=== PATIENT | female | born 1980 | race Caucasian/White ===

== ENCOUNTER 2023-09-28 08:38 | Emergency (ER) | payer OTHER, MEDICARE, SELFPAY ==
[2023-09-28 08:38] VITALS: BMI 21.7
[2023-09-28 08:39] VITALS: BP 165/130
--- NOTE | 2023-09-28 09:16 | ED.GENMED ---
History of Present Illness
General
Chief Complaint: Musculo-Skeletal Complaint
Source: patient
Exam Limitations: none
Time Seen by Provider: 09/28/23 09:03
Nursing documentation reviewed up to this point in time: agreed with
Travel History
Have you had any contact with someone who has COVID-19?: No
Do you have any symptoms of coronavirus? Fever > 100 degrees, chills, cough, shortness of breath, sore throat, loss of taste or smell, muscle aches, or headache?: No
History of Present Illness
History of Present Illness:
43 y/o F with h/o chronic pain
lumbar radiculopathy s/p lumbar fusion and diskectomy (2018, 2019 [facility])
s/p L total hip replacement 2020
chronic dislcoation/relocation of R hip because of leg length discrepancy issues
is newly followed by [facility], wants to have assessment about R hip
had a fall yesterday rafiq begum esaid her R hip popped out and she landed on her knees and hands
it relocates spontaneously
since she has had acute exac of her Lower back pain radiating into left leg
she has no new wekaness, incontience, fever. but her pain is severe 10/10 and not responding to her chronic pain meds oxycodone 18 mg ER bid and oxycodoeon 5 mg 4 times a day
pt is tearful and hyperventinating
on menstral cycle
no new symptoms, fever.
Past History
Past History
ED Past Medical History: Other (Arthritis, chronic back pain, cauda equina syndrome, left hip periprosthetic infection)
ED Past Surgical History: Orthopedic
Social History
Tobacco: Non-smoker
Review of Systems
Review of Systems
Allergies reviewed?: Yes
All Other Systems: Not applicable
Phy Exam
Physical Exam
Physical Exam:
GENERAL: Alert , diaphoretic, tearful, hyperventilating
HEAD: NCAT
NECK: no midline tenderness, active ROM intact, no paraspinal muscle tenderness;
CARDIAC: Tachycardic, no edema
LUNGS: Clear breath sounds bilaterally, no acute respiratory distress, no wheezes/rales/rhonchi
ABDOMEN: Soft, without focal tenderness, no r/g, no cvat, normal bowel sounds, nondistended
NEUROLOGICAL: Alert and oriented, no focal neuro deficits, CN intact, 5/5 strength, sensation intact,
SKIN: Warm and dry, no bruising
MUSCULOSKELETAL: No edema, well perfused. Normal inspection of the left hip, left leg and right hip and right leg
I do appreciate a slight leg length discrepancy with the left being longer than the right
Patient has no tenderness to palpation of the hips bilaterally
I am able to rotate both hips without dislocation, she has no decreased range of motion but she does have pain with left hip flexion
Back: No midline tenderness, mild dextroscoliosis, no bruising, no swelling, no tenderness
negative straight leg raise Bilaterally
PSYCH: Normal and appropriate interaction.
Course
Orders/Labs/Results
Orders:
Orders
09/28/23 09:12
Dexamethasone Sod Phosphate [Decadron] 10 mg IV NOW STA
HYDROmorphone [Dilaudid] 1 mg IV NOW STA
Ketorolac [Toradol] 15 mg IV NOW STA
09/28/23 10:17
HYDROmorphone [Dilaudid] 1 mg IV NOW STA
Vital Signs
Initial and Last Documented VS:
Initial Vital Signs
Temp Pulse Resp BP Pulse Ox
98.9 F 119 20 165/130 98
09/28/23 08:39 09/28/23 08:39 09/28/23 08:39 09/28/23 08:39 09/28/23 08:39
Last Documented Vital Signs
Temp Pulse Resp BP Pulse Ox
98.9 F 84 20 118/91 97
09/28/23 08:39 09/28/23 09:25 09/28/23 09:25 09/28/23 10:00 09/28/23 10:30
MDM/Problems Addressed
Differential Diagnosis Includes:
lumbar radiculopathy, hip arthritis, chronic pain acute exacerbation
MDM/Problems Addressed:
43 yo f with left hip pain
acute on chronic exacerbvation
also has known DDD in lumbar spine
says her R hip chronically discloates/subluxes and she did fall yesterday but onto her knees and not onto her left hip
she does not want an xray
she nhas gone to [facility] past when her pain flares up
she tried her oral pain meds but it is not getting better, 04/23
pain is in low back and radiates to left hip
sometimes with tinglign in left foot chronically, no change
no weakness, no incontnience, nof ever, no redness to the hip
on exam she is tachy, sweating, crying and uncomfortable
i can fully range her hip
neg straight leg raise
normal sensation and strenth
no red flag sypmtoms
given iv pain meds x 2 and much improved vitals
ambulating well with her chronic cane
d/c home.
*Critical Care Note
Total Time (30-74mins, 75-104mins- exclusive of procedures): Not Applicable
ED Attending Note
-
Portions of this chart may have been created with voice recognition software.� Occasional wrong word or��sound alike� substitutions may have occurred due to the inherent limitations of voice recognition software.
Discharge Plan
Departure
Patient Disposition: Home (Routine Discharge)
Date of Disposition: 09/28/23
Time of Disposition: 11:09
Patient with high blood pressure during this ER visit?: No
Condition: Fair
Covid-19: Not Applicable
Discharge Problem:
Acute exacerbation of chronic low back pain
Instructions: Chronic Pain (DC)
Prescriptions:
New
prednisone 20 mg tablet
40 mg PO DAILY 5 Days Qty: 10 0RF
No Action
oxycodone-acetaminophen [Percocet] 1 EACH tablet
1 tab PO TIDPRN PRN (Reason: MODERATE PAIN)
Patient Comments:
05/20/21- PT LAST PICKED UP @05/09/21 #90
aspirin 81 MG tablet,chewable
81 mg PO DAILY
lorazepam 1 MG tablet
1 mg PO Q4HPRN PRN (Reason: anxiety)
Patient Comments:
05/20/21 PT LAST PICKED UP @ 05/03/21 #30
gabapentin [Gralise] 600 MG tablet extended release 24 hr
1,800 mg PO HS
oxycodone myristate [Xtampza ER] 18 MG cap,sprinkl,ER12hr(DONT CRUSH)
18 mg PO Q12H
Patient Comments:
05/20/21- PT LAST PICKED UP @05/17/21 #30
tizanidine 2 MG tablet
2 mg PO TID
duloxetine 60 MG capsule,delayed release(DR/EC)
120 mg PO DAILY
vancomycin in 0.9 % sodium chl 750 MG/150 ML piggyback
750 mg IV Q8H 0RF
prednisone 10 MG tablets,dose pack
10 mg PO Daily Qty: 1 0RF
Rx Instructions:
50mg x 2 days, 40mg x 2 days, 30mg x 2 days, 20mg x 2 days, 10mg x 2 days
prednisone 20 mg tablet
40 mg PO DAILY Qty: 10 0RF
Referrals:
Steph Erickson MD [Family Provider] - Follow up in 2-3 days
Activity Restrictions/Additional Instructions:
YOU CAN TAKE THE PREDNISONE ONCE A DAY STARTING TOMORROW TO HELP WITH YOUR PAIN, 40 MG FOR 5 DAYS
CONTINUE YOUR PAIN MEDICATIONS
FOLLOW UP WITH YOUR ORTHO/SPINE SPECIALISTS
RETURN FOR: FEVER, SEVERE PAIN, INIABLITY TO MOVE YOUR HIPS/LEGS, INCONTIENCE, NUMBNESS, WEAKNESS OR ANY CONCERNS.
Interventions
Interventions:
*Risk Screen - Suicide Last Done: 09/28/23 09:03
*General Assessment Last Done: 09/28/23 09:03
*Neglect/Abuse Screening Last Done: 09/28/23 09:03
ED- Fall Risk Assessment Last Done: 09/28/23 09:03
*ED COVID-19 Vaccine History Last Done: 09/28/23 08:42
*Nursing Disposition Last Done: 09/28/23 12:03
ED-Musculoskeletal Assessment Last Done: 09/28/23 09:03
Discharge Date and Time
Discharge Date/Time: 09/28/23 12:04
[2023-09-28 09:17] VITALS: BP 157/107
[2023-09-28] MEDS: DECADRON 10 MG IV (09:20)
[2023-09-28] MEDS: DILAUDID 1 MG IV ×2 (09:20→10:29)
[2023-09-28] MEDS: TORADOL 15 MG IV (09:21)
[2023-09-28 10:00] VITALS: BP 118/91
== END 2023-09-28 12:04 | disposition home or self-care (01) ==
LOC: EMR 08:38
PROVIDERS: EMERGENCY PHYSICIAN Emergency Medicine; FAMILY PHYSICIAN Family Medicine
DX: M54.50 Low back pain, unspecified (principal); M25.552 Pain in left hip; M51.36 Other intervertebral disc degeneration, lumbar region; G89.29 Other chronic pain; W19.XXXA Unspecified fall, initial encounter
CPT/HCPCS: 99284; 96374; 96375 ×2; 96376

== ENCOUNTER 2024-03-22 12:25 | Emergency (ER) | payer OTHER, MEDICARE, SELFPAY ==
[2024-03-22 12:31] VITALS: BP 125/85
[2024-03-22 13:52] VITALS: BP 131/77
[2024-03-22 14:00] VITALS: BP 111/75
--- NOTE | 2024-03-22 14:05 | ED.GENMED ---
History of Present Illness
General
Chief Complaint: Musculo-Skeletal Complaint
Time Seen by Provider: 03/22/24 13:06
History of Present Illness
History of Present Illness:
43-year-old female history of left hip replacement in 2020 with subsequent periprosthetic infection that underwent revision, lumbar fusion, lumbar discectomy, cauda equina syndrome presenting with low back pain radiating down the back of her left
leg starting on 03/18. Patient reports decreased sensation to her left calf and weakness in her left leg. Patient states that she has episodes she was unable to get to the bathroom in time due to pain and had an episode of incontinence, but no
sudden incontinence. Patient denies any recent falls or trauma. Patient states that she had a right hip injection on 03/17 and symptoms started the next day. Patient states that she had subjective fever earlier this week that is since resolved.
Patient states that she has been taking prednisone 60 mg for the past few days with no relief. Patient reports taking gabapentin and Percocet with no relief. Pt states pain is better with left leg fully extended and internal rotation left hip. Pt
states spine doctor is at [facility], sees pain management.
Past History
Past History
ED Past Medical History: Other (Arthritis, chronic back pain, cauda equina syndrome, left hip periprosthetic infection)
ED Past Surgical History: Orthopedic
Social History
Tobacco: Non-smoker
Phy Exam
Physical Exam
Physical Exam:
General: Alert, acute distress secondary to pain
Head: NCAT
Eyes: clear conjunctiva
Neck: supple
Cardiac: regular rate and rhythm, no murmur
Lungs: clear to auscultation bilaterally. No wheezes, rales, or rhonchi. Speaking full unlabored sentences. No respiratory distress.
Abdomen: soft, nondistended nontender. No rebound or guarding.
: good rectal tone. Perirectal sensation intact
MSK: no lower extremity edema bilaterally. No deformity. Midline lower lumbar tenderness to palpation. No overlying erythema or increased warmth. Full passive range of motion of left hip/knee. Tenderness to palpation to left hip. No overlying
erythema or increased warmth to left hip.
Skin: warm, dry
Neuro: Alert and oriented x3. Decreased sensation to left posterior thigh/left calf. no saddle paraesthesias. 4/5 left hip/knee flexion and extension
Course
Orders/Labs/Results
Orders:
Orders
03/22/24 13:45
HYDROmorphone [Dilaudid] 1 mg IV NOW STA
03/22/24 14:14
Type+Screen Urgent
CBC/With Diff [Complete Blood Count/With Diff] Urgent
CMP [Comprehensive Metabolic Panel] Urgent
PT/INR [Prothrombin Time] Urgent
03/22/24 14:44
ABO2 Routine
BBK Wristband Number:
Associate notified that ABO2 has been ordered: [id number]
Date: 03/22/24
Time: 14:40
Medical Laboratory Technician ID: [id number]
Abnormal Lab Results
03/22/24
14:14
WBC 16.5 H 10^3/uL
(4.8-10.8)
MPV 10.8 H fL
(7.4-10.4)
Abs Immat Gran (auto) 0.1 H 10^3/uL
(0-0.05)
Absolute Neuts (auto) 13.7 H 10^3/uL
(1.4-6.5)
Absolute Monos (auto) 1.1 H 10^3/uL
(0.1-0.6)
Neutrophils % 83.1 H %
(42.2-75.2)
Lymphocytes % 9.5 L %
(20.5-51.1)
BUN 23 H mg/dl
(7-17)
Glucose 103 H mg/dl
(70-99)
03/22/24 14:14
03/22/24 14:14
Vital Signs
Initial and Last Documented VS:
Initial Vital Signs
Temp Pulse Resp BP Pulse Ox
98.8 F 95 18 125/85 97
03/22/24 12:31 03/22/24 12:31 03/22/24 12:31 03/22/24 12:31 03/22/24 12:31
Last Documented Vital Signs
Temp Pulse Resp BP Pulse Ox
98.8 F 62 20 116/84 96
03/22/24 12:31 03/22/24 15:30 03/22/24 15:15 03/22/24 15:00 03/22/24 14:45
MDM/Problems Addressed
Differential Diagnosis Includes:
Lumbar radiculopathy, periprosthetic infection
MDM/Problems Addressed:
43-year-old female presenting with low back pain radiating down the left leg to her left calf starting on 03/18. Patient states that she was put on prednisone 60 mg daily which she has been taking for the past few days with minimal relief. Patient
states that she has been taking Percocet with minimal relief. Patient denies any recent falls or trauma. On initial evaluation, patient tearful in acute distress secondary to pain. Full passive range of motion left hip. Difficulty assessing left
leg weakness secondary to pain. Normal rectal tone and sensation. On chart review, patient has history of cauda equina. Gave Dilaudid 1 mg IV. Obtain labs that showed white count 16.5 most likely reactive from being on prednisone. Otherwise
unremarkable. On reevaluation patient reports significant improvement in pain. 5 out of 5 bilateral hip/knee/ankle flexion and extension. 2+ patellar reflexes bilaterally. Decreased sensation to left calf compared to right which patient states
is new since onset of pain. Due to decreased sensation and significant pain, offered admission for MRI. Patient declined states that she would like to be discharged and follow-up with pain management and spine at [facility], get MRI outpatient. Patient
states that her pain is under control right now. Lower suspicion for left hip periprosthetic infection given full passive range of motion without pain to left hip, afebrile, nontachycardic, patient reports pain radiating down her left leg more
consistent with lumbar radiculopathy. Again discussed risks of not obtaining MRI including worsening pain, nerve impingement that results in paralysis. Patient expressed verbal understanding and again requested to be discharged. Will discharge with
spine and pain management follow up.
*Critical Care Note
Total Time (30-74mins, 75-104mins- exclusive of procedures): Not Applicable
ED Attending Note
-
Portions of this chart may have been created with voice recognition software.� Occasional wrong word or��sound alike� substitutions may have occurred due to the inherent limitations of voice recognition software.
Discharge Plan
Departure
Patient Disposition: Home (Routine Discharge)
Date of Disposition: 03/22/24
Time of Disposition: 15:35
Patient with high blood pressure during this ER visit?: No
Discharge Problem:
Left lumbar radiculopathy
Prescriptions:
No Action
oxycodone-acetaminophen [Percocet] 1 EACH tablet
1 tab PO TIDPRN PRN (Reason: MODERATE PAIN)
Patient Comments:
05/20/21- PT LAST PICKED UP @05/09/21 #90
aspirin 81 MG tablet,chewable
81 mg PO DAILY
lorazepam 1 MG tablet
1 mg PO Q4HPRN PRN (Reason: anxiety)
Patient Comments:
05/20/21 PT LAST PICKED UP @ 05/03/21 #30
gabapentin [Gralise] 600 MG tablet extended release 24 hr
1,800 mg PO HS
oxycodone myristate [Xtampza ER] 18 MG cap,sprinkl,ER12hr(DONT CRUSH)
18 mg PO Q12H
Patient Comments:
05/20/21- PT LAST PICKED UP @05/17/21 #30
tizanidine 2 MG tablet
2 mg PO TID
duloxetine 60 MG capsule,delayed release(DR/EC)
120 mg PO DAILY
vancomycin in 0.9 % sodium chl 750 MG/150 ML piggyback
750 mg IV Q8H 0RF
prednisone 10 MG tablets,dose pack
10 mg PO Daily Qty: 1 0RF
Rx Instructions:
50mg x 2 days, 40mg x 2 days, 30mg x 2 days, 20mg x 2 days, 10mg x 2 days
prednisone 20 mg tablet
40 mg PO DAILY Qty: 10 0RF
prednisone 20 mg tablet
40 mg PO DAILY 5 Days Qty: 10 0RF
Referrals:
Steph Erickson MD [Family Provider] -
Activity Restrictions/Additional Instructions:
Continue taking all medications as prescribed
Follow-up with pain management and spine outpatient
Return to the emergency department for weakness, fever or new/worsening symptoms
Interventions
Interventions:
*Risk Screen - Suicide Last Done: 03/22/24 14:29
*General Assessment Last Done: 03/22/24 14:29
*Neglect/Abuse Screening Last Done: 03/22/24 14:29
*ED COVID-19 Vaccine History Last Done: 03/22/24 14:29
*Nursing Disposition Last Done: 03/22/24 16:41
ED-Musculoskeletal Assessment Last Done: 03/22/24 14:29
Discharge Date and Time
Discharge Date/Time: 03/22/24 16:42
Print Language: CHINESE
[2024-03-22 14:14] VITALS: BMI 23.4
[2024-03-22] MEDS: DILAUDID 1 MG IV (14:15)
[2024-03-22 14:42] LABS: % Basophils 0.2 % (0-2); % Immature Granulocytes 0.5 % (0-0.5); % Lymphocytes 9.5 % (20.5-51.1); % Monocytes 6.7 % (1.7-9.3); % Neutrophils 83.1 % (42.2-75.2); Absolute Immature Granulocytes 0.1 10^3/uL (0-0.05); Absolute Lymphocytes 1.6 10^3/uL (1.2-3.4); Absolute Monocytes 1.1 10^3/uL (0.1-0.6); Absolute Neutrophils 13.7 10^3/uL (1.4-6.5); Hematocrit 39.9 % (37.0-47.0); Hemoglobin 13.7 g/dL (12.0-16.0); Mean Corp Hgb Conc. 34.3 g/dL (33.0-37.0); Mean Corpuscular Hgb 30.6 pg (27.0-31.0); Mean Corpuscular Volume 89.1 fL (81.0-99.0); Mean Platelet Volume 10.8 fL (7.4-10.4); Nucleated Red Blood Cells % 0 %; Platelet Count 269 10^3/uL (130-400); Red Blood Cell Count 4.48 10^6/uL (4.20-5.40); Red Cell Dist. Width 13.2 % (11.5-14.5); White Blood Cell Count 16.5 10^3/uL (4.8-10.8)
[2024-03-22 14:53] LABS: INR 0.94; PT 12.4 Sec (11.4-14.6)
[2024-03-22 14:58] LABS: ALT (SGPT) 14 U/L (0-35); AST (SGOT) 16 U/L (14-36); Albumin 3.9 g/dl (3.5-5.0); Alkaline Phosphatase 54 U/L (38-126); Blood Urea Nitrogen 23 mg/dl (7-17); Calcium 9.1 mg/dl (8.4-10.2); Carbon Dioxide 29 mmol/L (22-30); Chloride 102 mmol/L (98-107); Estimated Creatinine Clearance 98 ml/min; Glucose 103 mg/dl (70-99); Potassium 4.6 mmol/L (3.5-5.1); Sodium 139 mmol/L (135-145); Total Bilirubin 0.3 mg/dl (0.2-1.3); Total Protein 6.3 g/dl (6.3-8.2); eGFR > 60.00
[2024-03-22 15:00] VITALS: BP 116/84
== END 2024-03-22 16:42 | disposition home or self-care (01) ==
LOC: EMR 12:25
PROVIDERS: EMERGENCY PHYSICIAN Emergency Medicine; FAMILY PHYSICIAN Family Medicine
DX: M54.16 Radiculopathy, lumbar region (principal)
CPT/HCPCS: 99284; 96374; 80053; 85025; 85610; 86850; 86900; 86901

== ENCOUNTER 2024-03-24 14:37 | Inpatient (IN) | payer OTHER, MEDICARE, SELFPAY ==
[2024-03-24 12:51] VITALS: BP 138/95
--- NOTE | 2024-03-24 13:44 | ED.GENMED ---
History of Present Illness
General
Chief Complaint: Back Pain
Source: patient
Exam Limitations: none
Time Seen by Provider: 03/24/24 13:31
Nursing documentation reviewed up to this point in time: agreed with
History of Present Illness
History of Present Illness:
Patient to ED with complaint of severe low back pain with radiation down left leg. She was seen in ED on saturday and offered admission for MRI, pain control but patient states wanted to go home and return to pain management. Pain has become worse
and now states that she can not bear weight on her LLE due to severe pain. Ambulating with a walker now. States she was seen by Dr. Rasmussen this AM and sent back to ED. Discussed her status with him via tiger text and he confirms worsening
symptoms despite current pain meds and oral steroids. Agrees with need for MRI at this point. She denies fever/chills, recent illness. Denies bowel or bladder symptoms. No numbness/saddle paresthesia. Brought self to ED for eval.
Past History
Past History
ED Past Medical History: Other (Arthritis, chronic back pain, cauda equina syndrome, left hip periprosthetic infection)
ED Past Surgical History: Orthopedic
Social History
Tobacco: Non-smoker
Review of Systems
Review of Systems
Allergies reviewed?: Yes
All Other Systems: ROS reviewed and negative except as documented in HPI and ROS
Constitutional: Reports no symptoms
EENT: Reports no symptoms
Respiratory: Reports no symptoms
Cardiac: Reports no symptoms
ABD/GI: Reports no symptoms
: Reports no symptoms
Musculoskeletal: Reports back pain (severe back pain with radiation down LLE)
Skin: Reports no symptoms
Neurological: Reports weakness (pain and weakness LLE)
Psychiatric: Reports no symptoms
Phy Exam
General Physical Exam
General Presentation: moderate distress
General age: appears stated age
General Skin: warm and dry
General Habitus: normal
General Mental: tearful
Cardiovascular Exam
Cardiovascular Exam: regular rate/rhythm and no edema
Musculoskeletal Exam
Musculoskeletal Exam: full ROM (+straight leg raise), neuro vasc intact and other (unable to test reflexes LLE due to pain level)
Skin Exam
Skin Exam: normal color, warm/dry and no rash
Psychiatric Exam
Psychiatric Exam: normal mood/affect
Course
Orders/Labs/Results
Orders:
Orders
03/24/24 13:43
0.9% Sodium Chloride 1000 ml [Nss] 1,000 ml IV BOLUS
HYDROmorphone [Dilaudid] 1 mg IV NOW STA
Ondansetron Injectable [Zofran] 4 mg IV NOW STA
03/24/24 13:48
Complete Blood Count/With Diff Urgent
Comprehensive Metabolic Panel Urgent
Urinalysis Reflex To Culture Urgent
Date Specimen was Collected: 03/24/24
Time Specimen was Collected: 13:46
Urine Microscopic Reflex Cult Urgent
Urine Culture Urgent
WALT Source: U
Specimen Description:
Date Specimen was Collected: 03/24/24
Time Specimen was Collected: 13:46
03/24/24 14:11
Dexamethasone Sod Phosphate [Decadron] 10 mg IV NOW STA
03/24/24 14:30
Admit/Transfer Patient As Directed
Co-Sign Provider:
Level of Care: Inpatient admission
Assign to:: Medical/Surgical
Physician / Group: cori
Diagnosis: acute lower back pain
Reason for Hospitalization: acute lower back pain
Expected length of stay greater than two midnights?: Yes
ELOS- Estimated Length of Stay in days: 2
I certify the patient meets the requirements for IP care: Yes
03/24/24 14:31
Code Status As Directed
Resuscitation Status: Full Code
03/24/24 Dinner
Regular
At Your Request: Full Participation
03/24/24 15:55
Acetaminophen [Tylenol] 650 mg PO Q4HPRN PRN
Ibuprofen [Motrin] 400 mg PO Q6HPRN PRN
03/24/24 15:55
MR Left Hip W/o Routine
Comment:
Reason For Exam: pain
Recent pill cam endoscopy?: No
MR Lumbar W/o & With Contrast Routine
Comment:
Reason For Exam: acute lower back pain
Recent pill cam endoscopy?: No
Activity As Directed
Activity Level: As Tolerated
Vital Signs As Directed
Frequency: Per unit guidelines
DX Deep Vein Thrombosis Video Routine
03/24/24 16:30
HYDROmorphone [Dilaudid] 1 mg IV Q4HPRN PRN
03/24/24 20:00
Heparin 5,000 units SC Q12
03/25/24 06:00
Complete Blood Count/With Diff IN AM
Comprehensive Metabolic Panel IN AM
Abnormal Lab Results
03/24/24
13:48
WBC 13.4 H 10^3/uL
(4.8-10.8)
MCH 31.8 H pg
(27.0-31.0)
Abs Immat Gran (auto) 0.1 H 10^3/uL
(0-0.05)
Absolute Neuts (auto) 11.1 H 10^3/uL
(1.4-6.5)
Neutrophils % 83.0 H %
(42.2-75.2)
Lymphocytes % 12.5 L %
(20.5-51.1)
Chloride 97 L mmol/L
(98-107)
Carbon Dioxide 34 H mmol/L
(22-30)
BUN 21 H mg/dl
(7-17)
Glucose 126 H mg/dl
(70-99)
Leukocyte Esterase Rfl 1+ A
(Negative)
Urine Bacteria (Reflex) Moderate A
(Negative)
03/24/24 13:48
03/24/24 13:48
Vital Signs
Initial and Last Documented VS:
Initial Vital Signs
Temp Pulse Resp BP Pulse Ox
98.7 F 75 16 138/95 95
03/24/24 12:51 03/24/24 12:51 03/24/24 12:51 03/24/24 12:51 03/24/24 12:51
Last Documented Vital Signs
Temp Pulse Resp BP Pulse Ox
98.3 F 72 18 138/82 96
03/24/24 15:54 03/24/24 15:54 03/24/24 15:54 03/24/24 15:54 03/24/24 15:54
*Critical Care Note
Total Time (30-74mins, 75-104mins- exclusive of procedures): Not Applicable
Update Note
Update Note:
Patient to ED wtih complaint of severe low back pain with severe pain to LLE. using walker at home which is not her usual. Seen in ED and offered admission but she declined. Returns today with wrosening pain, recommendation to return by
[facility]. Will admit to hospitalist. MRI necessary.
ED Attending Note
-
Portions of this chart may have been created with voice recognition software.� Occasional wrong word or��sound alike� substitutions may have occurred due to the inherent limitations of voice recognition software.
Discharge Plan
Departure
Patient Disposition: Admit
Date of Disposition: 03/24/24
Time of Disposition: 14:09
Presentation/result/management discussed w/ accepting MD/DO: Hospitalist
Condition: Fair
Covid-19: Not Applicable
Discharge Problem:
Severe low back pain, Lumbar back pain with radiculopathy affecting left lower extremity
Interventions
Interventions:
*Risk Screen - Suicide Last Done: 03/24/24 13:13
*General Assessment Last Done: 03/24/24 13:13
*Neglect/Abuse Screening Last Done: 03/24/24 13:13
*ED COVID-19 Vaccine History Last Done: 03/24/24 13:13
*Nursing Disposition Last Done: 03/24/24 15:54
ED-Musculoskeletal Assessment Last Done: 03/24/24 13:15
Discharge Date and Time
Discharge Date/Time: 03/24/24 15:54
[2024-03-24] MEDS: DILAUDID 1 MG IV ×3 (13:48→18:37)
[2024-03-24] MEDS: ZOFRAN 4 MG IV (13:49)
[2024-03-24] MEDS: NSS 1000 IV (13:49)
[2024-03-24 13:51] VITALS: BP 142/102
[2024-03-24 14:00] VITALS: BP 114/67
[2024-03-24 14:07] LABS: Urine Albumin Trace (Neg - Trace); Urine Bilirubin Negative (Negative); Urine Character Clear (Clear); Urine Color Yellow; Urine Glucose Negative (Negative); Urine Ketone Negative (Negative); Urine Leukocyte 1+ (Negative); Urine Nitrite Negative (Negative); Urine Occult Blood Negative (Negative); Urine Urobilinogen Negative (Neg - 1+)
[2024-03-24 14:11] LABS: % Basophils 0.5 % (0-2); % Eosinophils 0.7 % (0-6); % Immature Granulocytes 0.4 % (0-0.5); % Lymphocytes 12.5 % (20.5-51.1); % Monocytes 2.9 % (1.7-9.3); Absolute Basophils 0.1 10^3/uL (0-0.2); Absolute Eosinophils 0.1 10^3/uL (0-0.7); Absolute Immature Granulocytes 0.1 10^3/uL (0-0.05); Absolute Lymphocytes 1.7 10^3/uL (1.2-3.4); Absolute Monocytes 0.4 10^3/uL (0.1-0.6); Absolute Neutrophils 11.1 10^3/uL (1.4-6.5); Hematocrit 44.6 % (37.0-47.0); Hemoglobin 15.2 g/dL (12.0-16.0); Mean Corp Hgb Conc. 34.1 g/dL (33.0-37.0); Mean Corpuscular Hgb 31.8 pg (27.0-31.0); Mean Corpuscular Volume 93.3 fL (81.0-99.0); Mean Platelet Volume 10.3 fL (7.4-10.4); Nucleated Red Blood Cells % 0 %; Platelet Count 289 10^3/uL (130-400); Red Blood Cell Count 4.78 10^6/uL (4.20-5.40); Red Cell Dist. Width 13.3 % (11.5-14.5); White Blood Cell Count 13.4 10^3/uL (4.8-10.8)
[2024-03-24] MEDS: DECADRON 10 MG IV (14:17)
[2024-03-24 14:25] LABS: ALT (SGPT) 15 U/L (0-35); AST (SGOT) 18 U/L (14-36); Albumin 4.3 g/dl (3.5-5.0); Alkaline Phosphatase 59 U/L (38-126); Blood Urea Nitrogen 21 mg/dl (7-17); Calcium 9.5 mg/dl (8.4-10.2); Carbon Dioxide 34 mmol/L (22-30); Chloride 97 mmol/L (98-107); Glucose 126 mg/dl (70-99); Potassium 4.4 mmol/L (3.5-5.1); Sodium 139 mmol/L (135-145); Total Bilirubin 0.3 mg/dl (0.2-1.3); Total Protein 6.8 g/dl (6.3-8.2); eGFR > 60.00
--- NOTE | 2024-03-24 14:36 | HPS.HSE ---
Addendum entered and electronically signed by Neetu Mccurdy MD 03/24/24 15:15:
Continue xtampza.
Original Note:
Family Physician
-
Family Physician: Steph Erickson
Chief Complaint
-
back pain
History of Present Illness
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
with radiation down the left leg.
She came to the emergency room 2 days ago severe lower back pain starting on 03/18. She had right hip injection on 03/17 and symptoms started the next day. She reported decreased sensation of her left calf and weakness in her left leg. She was unable
to get to the bathroom in time due to pain and had an episode of incontinence. She denies any prior history of incontinence. She denies recent falls or trauma. She has had subjective fever with chills earlier this week that is since resolved.
She has been taking prednisone 60 mg for the past 2 days without relief. He is also taking gabapentin and Percocet without relief. MRI was recommended but patient wanted to be discharged at that time.
She was unable to bear weight today so she came back to the emergency room.
She is due for repeat cervical and lumbar spinal fusion.
She uses medical marijuana.
Her spine doctor is at [facility] and she sees pain management.
Medical History
Past Medical History
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
Past Surgical History: Reports Other (spinal fusion, discectomy )
Social History
Tobacco: Non-smoker
Alcohol: None
Drug: Marijuana
Family History
Family History: Not pertinent
Allergies / Home Medications
Allergies reflects when Allergies were last updated in [facility].
Home Medications with original date entered in [facility]
Allergy/Medication List:
Allergies
Allergy/AdvReac Type Severity Reaction Status Date / Time
No Known Allergies Allergy Verified 09/28/23 08:45
Home Medications
aspirin 81 mg chewable tablet 81 mg PO DAILY 05/20/21
duloxetine 60 mg capsule,delayed release 120 mg PO DAILY 05/20/21
lorazepam 1 mg tablet 1 mg PO Q4HPRN PRN anxiety 05/20/21
oxycodone myristate 18 mg capsule sprinkle extended release 12hr(DON'T CRUSH) (Xtampza ER) 18 mg PO Q12H 05/20/21
oxycodone-acetaminophen 10 mg-325 mg tablet (Percocet) 1 tab PO TIDPRN PRN MODERATE PAIN 05/20/21
tizanidine 2 mg tablet 2 mg PO TID 05/20/21
prednisone 10 mg tablets in a dose pack 10 mg PO Daily ##1 11/30/21
Review of Systems
-
History Source: Patient
A 12 point ROS was completed and negative except as noted: Yes
Constitutional: Reports No Symptoms
EENT: Reports No Symptoms
Respiratory: Reports No Symptoms
Cardiac: Reports No Symptoms
Abdomen/GI: Reports No Symptoms
: Reports No Symptoms
Musculoskeletal: Reports See HPI
Skin: Reports No Symptoms
Neurological: Reports No Symptoms
Endocrine: Reports No Symptoms
Hematologic/Lymphatic: Reports No Symptoms
Psych: Reports No Symptoms
Physical Exam
Vital Signs
Vital Signs
Temp Pulse Resp BP Pulse Ox
98.7 F 69 16 114/67 94
03/24/24 12:51 03/24/24 14:15 03/24/24 12:51 03/24/24 14:00 03/24/24 14:15
Physical Exam
General: Well Developed, Well Nourished and No Apparent Distress
HEENT: NormoCephalic, Moist mucous membranes and Atraumatic
Respiratory: Clear
Cardiac: S1/S2 and Regular Rhythm; No Murmur or Rub
GI: Soft, Non Tender, Non Distended and Normal Bowel Sounds; No Organomegaly
Rectal: Deferred by Provider
Musculoskeletal: No Clubbing, No Cyanosis, No Edema and Other (decreased strength left lower extremity, tenderness lower back )
Skin: No Rash
Neuro: Nonfocal/grossly intact
Laboratory Results
-
03/24/24 13:48
03/24/24 13:48
Laboratory Results
Total Bilirubin 0.3 mg/dl (0.2-1.3) 03/24/24 13:48
AST 18 U/L (14-36) 03/24/24 13:48
ALT 15 U/L (0-35) 03/24/24 13:48
Alkaline Phosphatase 59 U/L (38-126) 03/24/24 13:48
Data Reviewed
-
Lab Data: Labs Reviewed by me
Old Records: Reviewed
Impression/Plan
-
IMPRESSION:
PLAN:
# Acute on chronic lower back pain with left-sided radiculopathy
# History of cauda equina syndrome secondary to herniated disks status post lumbar fusion/cystectomy
-Incontinence does not seem related to spinal cord compression but rather ambulatory dysfunction
-Patient did have incontinence, fever earlier this week
-Check MRI lumbar spine/left hip
-Dilaudid for severe pain
-Lidocaine patch
-Tylenol, ibuprofen
-Continue gabapentin
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
Medical marijuana use
Full code
DVT prophylaxis�heparin
Regular diet
[2024-03-24 15:49] LABS: Urine Squamous Cell >30 /LPF (Few)
[2024-03-24 15:50] LABS: Urine Bacteria Moderate (Negative); Urine Red Blood Cell 0-2 /HPF (0-2); Urine White Cell 0-2 /HPF (0-5)
[2024-03-24 15:54] VITALS: BP 138/82
[2024-03-24 15:55] VITALS: BMI 24.7
[2024-03-24] MEDS: NEURONTIN 600 MG PO ×2 (16:26→20:54)
[2024-03-24] MEDS: HEPARIN 5000 UNITS SC (20:50)
[2024-03-24] MEDS: ATIVAN 1 MG PO (20:50)
[2024-03-24] MEDS: ZOLOFT 50 MG PO (20:54)
[2024-03-24 23:03] VITALS: BP 140/89
[2024-03-25] MEDS: DILAUDID 1 MG IV ×4 (00:26→12:16)
[2024-03-25] MEDS: MOTRIN 400 MG PO (04:22)
[2024-03-25] MEDS: NEURONTIN 600 MG PO ×3 (07:28→21:22)
[2024-03-25] MEDS: LIDOCAINE 4% PATCH 1 PATCH TOPICAL (07:28)
[2024-03-25] MEDS: ATIVAN 1 MG PO ×2 (07:29→20:12)
[2024-03-25] MEDS: HEPARIN 5000 UNITS SC ×2 (07:29→20:12)
[2024-03-25] MEDS: TYLENOL 650 MG PO (07:29)
--- NOTE | 2024-03-25 07:38 | PTCARENOTE ---
Received pt back from MRI tearful, c/o 04/23 back pain radiating down both legs. See SEP. Ice and warm compresses provided.
[2024-03-25 08:00] VITALS: BP 140/86
[2024-03-25 08:34] LABS: Hemoglobin 15.6 g/dL (12.0-16.0); Mean Corp Hgb Conc. 34.7 g/dL (33.0-37.0); Mean Corpuscular Hgb 31.1 pg (27.0-31.0); Mean Corpuscular Volume 89.6 fL (81.0-99.0); Mean Platelet Volume 10.3 fL (7.4-10.4); Platelet Count 314 10^3/uL (130-400); Red Blood Cell Count 5.02 10^6/uL (4.20-5.40); Red Cell Dist. Width 12.9 % (11.5-14.5); White Blood Cell Count 26.6 10^3/uL (4.8-10.8)
[2024-03-25 08:52] LABS: ALT (SGPT) 14 U/L (0-35); AST (SGOT) 19 U/L (14-36); Albumin 4.2 g/dl (3.5-5.0); Alkaline Phosphatase 64 U/L (38-126); Blood Urea Nitrogen 19 mg/dl (7-17); Calcium 9.7 mg/dl (8.4-10.2); Carbon Dioxide 27 mmol/L (22-30); Chloride 100 mmol/L (98-107); Estimated Creatinine Clearance 98 ml/min; Glucose 98 mg/dl (70-99); Potassium 4.4 mmol/L (3.5-5.1); Sodium 136 mmol/L (135-145); Total Bilirubin 0.6 mg/dl (0.2-1.3); Total Protein 6.9 g/dl (6.3-8.2); eGFR > 60.00
[2024-03-25 09:11] LABS: % Basophils 0.2 % (0-2); % Immature Granulocytes 0.8 % (0-0.5); % Lymphocytes 10.3 % (20.5-51.1); % Monocytes 5.3 % (1.7-9.3); % Neutrophils 83.4 % (42.2-75.2); Absolute Basophils 0.1 10^3/uL (0-0.2); Absolute Immature Granulocytes 0.2 10^3/uL (0-0.05); Absolute Lymphocytes 2.7 10^3/uL (1.2-3.4); Absolute Monocytes 1.4 10^3/uL (0.1-0.6); Absolute Neutrophils 22.2 10^3/uL (1.4-6.5); Nucleated Red Blood Cells % 0 %
[2024-03-25] MEDS: DECADRON 6 MG IV ×2 (12:08→23:15)
[2024-03-25] MEDS: TYLENOL 325 MG PO ×3 (12:09→21:22)
[2024-03-25] MEDS: ROXICODONE 10 MG PO ×2 (12:09→17:23)
--- NOTE | 2024-03-25 12:23 | W.PN.HOSP.TC ---
Today's Communication/Plan
-
standing long acting pain meds-dose increased
IV narcs
pt/ot
await pain management recs
Assessment / Plan
Assessment / Plan
# Acute on chronic lower back pain with left-sided radiculopathy
# History of cauda equina syndrome secondary to herniated disks status post lumbar fusion/cystectomy
-MR lumbar At L3-4, there is a new central through left subarticular inferior disc extrusion, occupying the left lateral recess inferior to the disc space level, and likely resulting in compression of the left L4 nerve root origin. At L4-5, there is
a central through left subarticular disc protrusion, also present on previous examination, probably slightly increased from previous exam. There is posterior decompression from left posterolateral laminectomy at this level. At L4-5, there is also
moderate left foraminal narrowing.
-MR hip Left hip prosthesis is present with resultant susceptibility artifact. There is no significant MR abnormality of the left hip adjacent to the prosthesis.There is moderate degenerative change of the superolateral right hip joint.
-Standing oxycontin (non formulary Xtampza) 15mg Q12H. Continue percocet QID. Dilaudid for severe pain
-Lidocaine patch
-Tylenol, ibuprofen
-Continue gabapentin 600mg TID
-Trial of IV steroids as it seemed to help in the past
-Reached out to patient primary pain management Dr. Longoria-awaiting to hear back.
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
Medical marijuana use
Full code
DVT prophylaxis�heparin
Regular diet
Anticipated Discharge: > 48 hours
Subjective/Interval History
-
Date of Service: March 25, 2024
states of severe back pain-LLE
shooting constant pain
worsened recently
hx of back pain and back surgeries
Objective Data
-
Labs:
Laboratory Results
03/25/24
08:11
WBC 26.6 H
Hgb 15.6
Hct 45.0
Plt Count 314
Sodium 136
Potassium 4.4
Chloride 100
Carbon Dioxide 27
BUN 19 H
Creatinine 0.5 L
Glucose 98
Calcium 9.7
Total Bilirubin 0.6
AST 19
ALT 14
Alkaline Phosphatase 64
Vital Signs:
Vital Signs
Temp Pulse Resp BP Pulse Ox
98.3 F 70 18 140/86 100
03/25/24 08:00 03/25/24 08:00 03/25/24 08:00 03/25/24 08:00 03/25/24 08:00
I&O
03/24/24 03/25/24 03/26/24
06:59 06:59 06:59
Intake Total 960 / 960
Balance 960 / 960
Physical Exam
-
General: Well Developed, No Apparent Distress, Appears in Distress and Pain
HEENT: Normocephalic, Atraumatic and Moist Mucous Membranes
Respiratory: Clear to Auscultation
Cardiac: Regular Rhythm and S1/S2; Negative Murmur, Rub or Gallop
GI: Soft, Nontender, Nondistended and Normal Bowel Sounds; Negative Organomegaly
Rectal: Deferred by Provider
Musculoskeletal: No Clubbing, No Cyanosis, No Edema and Other (TTP lower back -paraspinal. prior surgical scar noted )
Skin: Negative Rash
Neuro: Awake and Nonfocal/Grossly Intact
Psych: Calm
Data Reviewed
-
Total Time Spent with Patient (in minutes): 58
MRI: Other
--- NOTE | 2024-03-25 12:47 | CM ---
Patient seen bedside.
dx back pain.
Patient crying with severe pain.
IA completed.
Patient lives with spouse and kids in a 2 story home.
Patient independent prior to admission.
Patient uses RW and cane.
Patient drives.
PCP: Dr Erickson
Pharmacy: [facility]
Plan: await PT/OT evals..
[2024-03-25] MEDS: OXYCONTIN (CONTROLLED RELEASE) 15 MG PO (13:37)
[2024-03-25 15:25] VITALS: BP 149/96
[2024-03-25] MEDS: DILAUDID 1.25 MG IV ×2 (15:39→21:28)
--- NOTE | 2024-03-25 18:10 | PTCARENOTE ---
Pt medicated for 10/10 back pain that radiates down L leg throughout the day. See MAR. Dr Dasilva notified of pain remaining @ 10/10, multiple adjustments made to medications. Pt very tearful and emotional throughout parts of today, support provided.
Pt able to walk the room and ambulated the halls this evening w/ RW. Although pt continues to report 10/10 pain, pt appears more comfortable, able to move better, and dozing intermittently at this time.
[2024-03-25] MEDS: OXYCONTIN (CONTROLLED RELEASE) 30 MG PO (20:12)
[2024-03-25] MEDS: SENOKOT-S 1 TABLET PO (20:12)
[2024-03-25] MEDS: ZOLOFT 50 MG PO (21:22)
[2024-03-25 23:00] VITALS: BP 127/81
[2024-03-26] MEDS: DILAUDID 1.25 MG IV ×2 (03:12→07:41)
[2024-03-26] MEDS: DILAUDID 1 MG IV ×2 (05:57→11:28)
[2024-03-26] MEDS: ROXICODONE 10 MG PO (06:22)
[2024-03-26] MEDS: OXYCONTIN (CONTROLLED RELEASE) 30 MG PO (07:35)
[2024-03-26] MEDS: SENOKOT-S 1 TABLET PO (07:35)
[2024-03-26] MEDS: NEURONTIN 600 MG PO (07:35)
[2024-03-26] MEDS: TYLENOL 325 MG PO (07:35)
[2024-03-26] MEDS: ATIVAN 1 MG PO (07:35)
[2024-03-26] MEDS: MIRALAX 17 GRAMS PO (07:36)
[2024-03-26] MEDS: HEPARIN 5000 UNITS SC (07:36)
[2024-03-26] MEDS: LIDOCAINE 4% PATCH 1 PATCH TOPICAL (07:36)
[2024-03-26 07:46] VITALS: BP 116/96
--- NOTE | 2024-03-26 10:25 | W.PN.HOSP.TC ---
Today's Communication/Plan
-
adjust pain meds
steroids
narcan
OP pain management
Assessment / Plan
Assessment / Plan
# Acute on chronic lower back pain with left-sided radiculopathy
# History of cauda equina syndrome secondary to herniated disks status post lumbar fusion/cystectomy
-MR lumbar At L3-4, there is a new central through left subarticular inferior disc extrusion, occupying the left lateral recess inferior to the disc space level, and likely resulting in compression of the left L4 nerve root origin. At L4-5, there is
a central through left subarticular disc protrusion, also present on previous examination, probably slightly increased from previous exam. There is posterior decompression from left posterolateral laminectomy at this level. At L4-5, there is also
moderate left foraminal narrowing.
-MR hip Left hip prosthesis is present with resultant susceptibility artifact. There is no significant MR abnormality of the left hip adjacent to the prosthesis.There is moderate degenerative change of the superolateral right hip joint.
-Standing oxycontin (non formulary Xtampza Dced ) 30mg Q12H. Continue percocet QID but switch to prn. Dilaudid for severe pain-plan for pain regimen after discussion with patient primary pain management Dr. Rasmussen
-Lidocaine patch
-Tylenol, ibuprofen
-Continue gabapentin 600mg TID
-Trial of IV steroids seems to have significantly helped with the pain. Patient to continue with p.o. prednisone taper at home. Currently on 40 mg at home.
-Offered ALVARO but patient refused. States no improvement in the past. Patient to follow-up with her primary pain management on 03/30/2024. Recommended to have NARCAN at home.
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
Medical marijuana use
Full code
DVT prophylaxis�heparin
Regular diet
More than 30 minutes spent in discharge including
Final examination of the patient
Summarizing hospital stay
Instructions for continuing care to all relevant caregivers
Preparation of discharge records, prescriptions, and referral forms
Total time spent (in minutes): 56
Anticipated Discharge: Today
Subjective/Interval History
-
Date of Service: March 26, 2024
States of significant improvement and now back pain.
Not completely alleviated however able to ambulate and stand without difficulty
Denies any urinary fecal incontinence
Objective Data
-
Vital Signs:
Vital Signs
Temp Pulse Resp BP Pulse Ox
98.6 F 71 18 116/96 97
03/26/24 07:46 03/26/24 07:46 03/26/24 07:46 03/26/24 07:46 03/26/24 08:00
I&O
03/25/24 03/26/24 03/27/24
06:59 06:59 06:59
Intake Total 960 / 960 1080 / 1080
Balance 960 / 960 1080 / 1080
Physical Exam
-
General: Well Developed, No Apparent Distress, Appears in Distress and Pain
HEENT: Normocephalic, Atraumatic and Moist Mucous Membranes
Respiratory: Clear to Auscultation
Cardiac: Regular Rhythm and S1/S2; Negative Murmur, Rub or Gallop
GI: Soft, Nontender, Nondistended and Normal Bowel Sounds; Negative Organomegaly
Rectal: Deferred by Provider
Musculoskeletal: No Clubbing, No Cyanosis, No Edema and Other (surgical scar noted . Ambulating and walking with walker)
Skin: Negative Rash
Neuro: Awake, Oriented, AO x 3, No Motor Deficits and Nonfocal/Grossly Intact
Psych: Calm
[2024-03-26] MEDS: DECADRON 6 MG IV (11:28)
--- NOTE | 2024-03-26 11:41 | W.DCSUMMARY ---
Discharge Summary
Discharge Data
Date of Admission: 03/24/24
Date of Discharge: 03/26/24
-
Pending Results: No
Hospital Course
43 yo F with extensive past medical history of chronic back surgeries with infection, cauda equina syndrome secondary to herniated disc status post lumbar fusion/discectomy, history of left hip replacement followed by hip infection reevaluation,
medical marijuana use, chronic opioid daily basis, was presented with severe back pain. MR lumbar At L3-4, there is a new central through left subarticular inferior disc extrusion, occupying the left lateral recess inferior to the disc space level,
and likely resulting in compression of the left L4 nerve root origin. At L4-5, there is a central through left subarticular disc protrusion, also present on previous examination, probably slightly increased from previous exam. There is posterior
decompression from left posterolateral laminectomy at this level. At L4-5, there is also moderate left foraminal narrowing. MR hip Left hip prosthesis is present with resultant susceptibility artifact. There is no significant MR abnormality of the
left hip adjacent to the prosthesis. There is moderate degenerative change of the superolateral right hip joint. Started on IV decadron and just transitioned to po steroid taper regimen. Pain medications adjusted per discussion with primary
doctor. standing oxycontin (non formulary Xtampza Dced ) 30mg Q12H. Continue percocet QID but switch to prn. Dilaudid for severe pain-plan for pain regimen IV while in hospital which was discontinued. Epidural steroid injection treatment plan was
discussed with patient but she mentioned has received it in the past and has not alleviated in the past and refused it. Patient was evaluated by PT/OT. Patient pain improved and she was able to stand and ambulate and will be discharged home and
patient will follow-up with her primary pain management doctor on Saturday.
Discharge Plan
-
Patient Disposition: Home (Routine Discharge)
Discharge Diagnosis/Procedures: Acute on chronic lower back pain with left-sided lumbar radiculopathy
Condition: Fair
Diet: As tolerated
Activity: As tolerated
Driving Restrictions: As prior to admission
Referrals:
Nilay Rasmussen MD [Active] - 03/30/24
Steph Erickson MD [Family Provider] - in less than 1 week
Prescriptions:
New
polyethylene glycol 3350 [HealthyLax] 17 gram Powder In Packet
17 g PO DAILY PRN (Reason: constipation) Qty: 30 0RF
ibuprofen 400 mg Tablet
400 mg PO Q6HPRN PRN (Reason: mild pain) 7 Days Qty: 12 0RF
naloxone [Narcan] 4 mg/actuation spray,non-aerosol
4 mg intranasal Q2M PRN (Reason: opioid overdose) 30 Days Qty: 2 0RF
oxycodone [OxyContin] 30 mg tablet,oral only,ext.rel.12 hr
30 mg PO Q12H 4 Days Qty: 8 0RF
Continued
lorazepam 1 MG tablet
1 mg PO BID
gabapentin 600 mg Tablet
600 mg PO TID
sertraline 50 mg Tablet
50 mg PO HS
prednisone 10 MG tablets,dose pack
10 mg PO UD
Rx Instructions:
50mg x 2 days, 40mg x 2 days, 30mg x 2 days, 20mg x 2 days, 10mg x 2 days
Changed
oxycodone-acetaminophen 10-325 mg Tablet
1 tab PO QID PRN (Reason: mod-severe pain) Qty: 0 0RF
Discontinued
Xtampza ER 18 MG cap,sprinkl,ER12hr(DONT CRUSH)
18 mg PO Q12H
Discharge Orders:
Discharge Patient (As Directed); Ordered 03/26/24
Ordered By: Adolfo Kevin
Discharge Date and Time
Discharge Date/Time: 03/26/24 12:38
Print Language: CAMEROONIAN
--- NOTE | 2024-03-26 11:48 | W.[place]-PDMP ---
[place]-PD[place]
-
Checked the [place]- Prescription Drug Monitoring Program website, no red flags identified; safe to proceed with prescription.
--- NOTE | 2024-03-26 11:49 | CM ---
Patient for d/c home today.
denies home care needs.
Patient drove to the hospital and will drive home.
Plan: home no needs.
== END 2024-03-26 12:38 | disposition home or self-care (01) | DRG 552 ==
LOC: 4 WEST ACU 14:37
PROVIDERS: Nurse Practitioner; ADMITTING PHYSICIAN Hospitalist; ATTENDING PHYSICIAN Hospitalist; EMERGENCY PHYSICIAN Emergency Medicine; FAMILY PHYSICIAN Family Medicine
DX: M51.16 Intervertebral disc disorders with radiculopathy, lumbar region (principal); M54.50 Low back pain, unspecified; G89.29 Other chronic pain; M19.90 Unspecified osteoarthritis, unspecified site; R26.2 Difficulty in walking, not elsewhere classified; Z96.642 Presence of left artificial hip joint; Z79.891 Long term (current) use of opiate analgesic; Z79.82 Long term (current) use of aspirin; Z79.899 Other long term (current) drug therapy; Z79.52 Long term (current) use of systemic steroids; Z98.1 Arthrodesis status
CPT/HCPCS: 72158; 73721; 80053; 81003; 81015; 85025; 87070; 87086; 96361; 96374; 96375; 97162; 97165; 97530; 97535; 99285; A9575

== ENCOUNTER 2024-09-14 18:45 | Emergency (ER) | payer OTHER, MEDICARE, SELFPAY ==
[2024-09-14 19:13] VITALS: BP 145/101
--- NOTE | 2024-09-14 20:24 | ED.GENMED ---
History of Present Illness
General
Chief Complaint: Musculo-Skeletal Complaint
Source: patient
Time Seen by Provider: 09/14/24 19:49
History of Present Illness
History of Present Illness:
44-year-old female with past medical history of chronic back pain status post left total hip replacement, scheduled to undergo right hip replacement presenting to the ER for evaluation of gradually worsening right hip pain despite her usual chronic
medications including gabapentin, oxycodone and NSAIDs. Patient has significant degenerative joint disease/osteoarthritis. She follows with pain management in addition to her orthopedist and has an appointment scheduled on Saturday with her pain
management. Patient states that due to the pain her right leg has been giving out causing her to fall but states the pain is not any different following the fall. She denies any weakness or numbness to the extremity. No new concerns. Patient
states that couple of weeks ago she was on a steroid taper which did seem to help the pain. Patient states she came to the ER tonight in hopes of having some temporary relief of pain until she can see her pain management provider on Saturday.
Past History
Past History
ED Past Medical History: Other (Arthritis, chronic back pain, cauda equina syndrome, left hip periprosthetic infection)
ED Past Surgical History: Orthopedic
Social History
Tobacco: Non-smoker
Alcohol: None
Drug: None
Personal:
Living: with family
Review of Systems
Review of Systems
All Other Systems: ROS reviewed and negative except as documented in HPI and ROS
Phy Exam
Physical Exam
Physical Exam:
GENERAL: Alert , in no apparent distress
EYE: conjunctiva clear
Head: Normocephalic atraumatic
NECK: Supple,
ENT: mmm.
LUNGS: no acute respiratory distress
NEUROLOGICAL: Alert and oriented
SKIN: Warm and dry, skin intact.
MUSCULOSKELETAL: Right lower extremity: No obvious deformity, erythema, edema, ecchymosis, abrasions or lacerations. Patient with significant pain/discomfort with any attempted range of motion at the right hip. Extremity is otherwise warm
well-perfused. Neurovascularly intact.
PSYCH: Normal and appropriate interaction.
Scores
Heart Failure Risk
Heart Failure Risk Score: Not Applicable
Heart Score for Chest Pain Patients
STEMI patient?: Not applicable
Withdrawal Assessment of Alcohol
Withdrawal Assessment Completed?: Not applicable
Course
Orders/Labs/Results
Orders:
Orders
09/14/24 19:16
Hip, Right 2-3 Views [CR Hip - RT w/wo Pel 2-3 Vw*] Urgent
Comment:
Reason For Exam: pain
Include a pelvis x-ray?: Yes
09/14/24 20:24
Dexamethasone Sod Phosphate [Decadron] 10 mg IM NOW STA
HYDROmorphone [Dilaudid] 1 mg IM NOW STA
Vital Signs
Initial and Last Documented VS:
Initial Vital Signs
Temp Pulse Resp BP Pulse Ox
98.8 F 89 22 145/101 98
09/14/24 19:13 09/14/24 19:13 09/14/24 19:13 09/14/24 19:13 09/14/24 19:13
Last Documented Vital Signs
Temp Pulse Resp BP Pulse Ox
98.8 F 89 22 145/101 98
09/14/24 19:13 09/14/24 19:13 09/14/24 19:13 09/14/24 19:13 09/14/24 19:13
MDM/Problems Addressed
Differential Diagnosis Includes:
Acute on chronic exacerbation of pain, degenerative joint disease/osteoarthritis, bursitis, septic joint considered however patient without any fever or signs of infection
MDM/Problems Addressed:
44-year-old female presenting the ER for evaluation of right-sided hip pain that has been gradually worsening. Scheduled to potentially have surgery on the right hip later this month. Has an appointment scheduled with pain management provider this
coming Saturday. Pain with any attempted range of motion in all planes of the right hip. No signs of infection presently. Offered patient pain control here as well as possible admission for physical therapy due to her recent falls however
patient states she ultimately would like to be discharged home. Will give a dose of Dilaudid as well as Decadron here. Prescription for Medrol Dosepak provided. I did encourage the patient to contact her pain management provider as well as
orthopedist to ensure that they are okay with her taking the Medrol Dosepak. Patient expressed understanding. Otherwise stable for discharge home.
*Radiology
Radiology exam reviewed: preliminary read by ED provider (Degenerative joint disease)
*Pulse Oximetry
Patient hypoxic: no
*Critical Care Note
Total Time (30-74mins, 75-104mins- exclusive of procedures): Not Applicable
Data Reviewed
Review of Other/Old Records Reveals: Radiology Studies
ED Attending Note
-
Portions of this chart may have been created with voice recognition software.� Occasional wrong word or��sound alike� substitutions may have occurred due to the inherent limitations of voice recognition software.
Discharge Plan
Departure
Patient Disposition: Home (Routine Discharge)
Date of Disposition: 09/14/24
Time of Disposition: 20:24
Patient with high blood pressure during this ER visit?: Yes
Discharge Problem:
Chronic pain of right hip
Instructions: Hip Pain ED
Prescriptions:
New
methylprednisolone [Medrol (Beau)] 4 mg tablets,dose pack
4 mg PO DIRECTED Qty: 21 0RF
No Action
lorazepam 1 MG tablet
1 mg PO BID
gabapentin 600 mg Tablet
600 mg PO TID
sertraline 50 mg Tablet
50 mg PO HS
prednisone 10 MG tablets,dose pack
10 mg PO UD
Rx Instructions:
50mg x 2 days, 40mg x 2 days, 30mg x 2 days, 20mg x 2 days, 10mg x 2 days
polyethylene glycol 3350 [HealthyLax] 17 gram Powder In Packet
17 g PO DAILY PRN (Reason: constipation) Qty: 30 0RF
ibuprofen 400 mg Tablet
400 mg PO Q6HPRN PRN (Reason: mild pain) 7 Days Qty: 12 0RF
naloxone [Narcan] 4 mg/actuation spray,non-aerosol
4 mg intranasal Q2M PRN (Reason: opioid overdose) 30 Days Qty: 2 0RF
oxycodone-acetaminophen 10-325 mg Tablet
1 tab PO QID PRN (Reason: mod-severe pain) Qty: 0 0RF
oxycodone [OxyContin] 30 mg tablet,oral only,ext.rel.12 hr
30 mg PO Q12H 4 Days Qty: 8 0RF
Interventions
Interventions:
*Risk Screen - Suicide Last Done: 09/14/24 19:13
*General Assessment Last Done: 09/14/24 19:13
*Neglect/Abuse Screening Last Done: 09/14/24 21:04
ED- Fall Risk Assessment Last Done: 09/14/24 20:30
*Nursing Disposition Last Done: 09/14/24 21:04
ED-Musculoskeletal Assessment Last Done: 09/14/24 20:15
Discharge Date and Time
Discharge Date/Time: 09/14/24 21:05
Print Language: EQUATORIAL GUINEAN
[2024-09-14] MEDS: DECADRON 10 MG IM (20:29)
[2024-09-14] MEDS: DILAUDID 1 MG IM (20:30)
== END 2024-09-14 21:05 | disposition home or self-care (01) ==
LOC: EMR 18:45
PROVIDERS: EMERGENCY PHYSICIAN Emergency Medicine; FAMILY PHYSICIAN Family Medicine
DX: G89.29 Other chronic pain (principal); M25.551 Pain in right hip; W19.XXXA Unspecified fall, initial encounter; M16.11 Unilateral primary osteoarthritis, right hip; Z96.642 Presence of left artificial hip joint
CPT/HCPCS: 96372; 99284; 73502